=== PATIENT | male | born 1965 | race Hispanic/Latino ===

== ENCOUNTER 2022-06-28 14:10 | Inpatient (IN) | payer OTHER ==
[~2022-06-28] VITALS: Ht 165.1 cm; Wt 83.5 kg
[2022-06-28 14:38] LABS: BASOPHILS % (AUTO) 0.5 % (0.0-5.0); EOSINOPHILS % (AUTO) 1.5 % (0.0-8.0); HEMATOCRIT 35.3 % (42-54); LYMPHOCYTES % (AUTO) 21.2 % (21.0-51.0); MEAN CORPUSCULAR HEMOGLOBIN 28.2 pg (27.0-33.0); MEAN CORPUSCULAR HGB CONC 34.6 g/dL (32.0-36.0); MEAN CORPUSCULAR VOLUME 81.5 fL (79-99); MONOCYTES % (AUTO) 16.8 % (3.0-13.0); NEUTROPHILS % (AUTO) 58.8 % (40.0-77.0); PLATELET COUNT (AUTO) 393 K/uL (130-400); RED BLOOD CELL COUNT(AUTO) 4.33 MIL/uL (4.50-6.20); RED CELL DISTRIBUTION WIDTH 12.6 % (11.0-15.5)
[2022-06-28 14:47] LABS: INR 1.1 (0.85-1.15); PROTHROMBIN TIME 11.9 SEC (9.6-11.6)
[2022-06-28 14:52] LABS: ALBUMIN 2.3 g/dL (3.5-5.0); TOTAL PROTEIN, SERUM 7.3 g/dL (6.0-8.3)
[2022-06-28] MEDS ORDERED: PANTOPRAZOLE 40 MG/VIAL IVP STA (16:34)
[2022-06-28] MEDS ORDERED: IOHEXOL 350 MG/ML 100ML INFUS..BTL IV ONE (16:57)
[2022-06-28] MEDS: MORPHINE 2 MG SYG IV PRN (22:50)
[2022-06-29] MEDS: MORPHINE 2 MG SYG IV PRN (03:42)
[2022-06-29 04:00] LABS: BASOPHILS % (AUTO) 0.6 % (0.0-5.0); HEMATOCRIT 35.9 % (42-54); LYMPHOCYTES % (AUTO) 17.1 % (21.0-51.0); MEAN CORPUSCULAR HEMOGLOBIN 27.8 pg (27.0-33.0); MEAN CORPUSCULAR VOLUME 81.8 fL (79-99); MONOCYTES % (AUTO) 14.5 % (3.0-13.0); NEUTROPHILS % (AUTO) 65.1 % (40.0-77.0); PLATELET COUNT (AUTO) 435 K/uL (130-400); RED BLOOD CELL COUNT(AUTO) 4.39 MIL/uL (4.50-6.20); RED CELL DISTRIBUTION WIDTH 12.7 % (11.0-15.5); WHITE BLOOD COUNT (AUTO) 11.5 K/uL (4.8-10.8)
[2022-06-29 04:14] LABS: POTASSIUM 3.5 mmol/L (3.5-5.1)
[2022-06-29 04:19] LABS: ALBUMIN 2.2 g/dL (3.5-5.0); TOTAL PROTEIN, SERUM 7.2 g/dL (6.0-8.3)
[2022-06-29 05:14] LABS: ERYTHROCYTE SEDIMENTATION RATE 62 MM/HR (0-20)
[2022-06-29] MEDS ORDERED: ONDANSETRON 4MG INJ IV PRN (05:30)
[2022-06-29] MEDS ORDERED: MORPHINE 2 MG SYG IV PRN (05:30)
[2022-06-29] MEDS ORDERED: ACETAMINOPHEN 325 MG TAB PO PRN ×2 (05:30)
[2022-06-29] MEDS: 0.9%NACL 1000ML 1,000 ML IV SCH ×2 (05:44→16:39)
[2022-06-29] MEDS: LEVOFLOXACIN 500 MG/D5W 100 ML 100 ML IV SCH (05:44)
[2022-06-29 06:00] LABS: HEMOGLOBIN A1C 6.4 % (4.0-6.0)
[2022-06-29] MEDS: METRONIDAZOLE 500MG/100ML BAG 100 ML IVPB SCH ×3 (07:11→23:43)
[2022-06-29] MEDS ORDERED: PANTOPRAZOLE 40 MG/VIAL ONE (08:52)
[2022-06-29] MEDS ORDERED: FAMOTIDINE 20MG VIAL IV SCH (09:00)
[2022-06-29] MEDS: PANTOPRAZOLE 40MG INJ 80 MG in 0.9%NACL 100ML 100 ML IV SCH ×2 (09:01→21:34)
[2022-06-29] MEDS ORDERED: PEG 3350/NA SULF,BICARB,CL/KCL 4000 ML SOLN PO SCH (15:00)
[2022-06-29 17:30] VITALS: BP 152/91
[2022-06-29 21:16] VITALS: BP 160/90
[2022-06-29] MEDS ORDERED: METOPROLOL TARTRATE 1 MG/ML 5ML VIAL IV ONE (23:30)
[2022-06-29 23:37] VITALS: BP 169/95
[2022-06-29 23:59] VITALS: BP 152/90
[2022-06-30] VITALS (15 sets, daily range): BP systolic 129–158; BP diastolic 79–93
[2022-06-30] MEDS: 0.9%NACL 1000ML 1,000 ML IV SCH ×2 (05:25→22:10)
[2022-06-30] MEDS: LEVOFLOXACIN 500 MG/D5W 100 ML 100 ML IV SCH (05:25)
[2022-06-30 05:32] LABS: BASOPHILS % (AUTO) 0.4 % (0.0-5.0); EOSINOPHILS % (AUTO) 0.4 % (0.0-8.0); HEMATOCRIT 30.3 % (42-54); LYMPHOCYTES % (AUTO) 15.6 % (21.0-51.0); MEAN CORPUSCULAR HEMOGLOBIN 27.8 pg (27.0-33.0); MEAN CORPUSCULAR VOLUME 81.9 fL (79-99); MONOCYTES % (AUTO) 13.4 % (3.0-13.0); NEUTROPHILS % (AUTO) 68.9 % (40.0-77.0); PLATELET COUNT (AUTO) 371 K/uL (130-400); RED CELL DISTRIBUTION WIDTH 12.8 % (11.0-15.5); WHITE BLOOD COUNT (AUTO) 11.9 K/uL (4.8-10.8)
[2022-06-30 05:49] LABS: MAGNESIUM 1.7 mg/dL (1.80-2.40); POTASSIUM 3.2 mmol/L (3.5-5.1)
[2022-06-30] MEDS: METRONIDAZOLE 500MG/100ML BAG 100 ML IVPB SCH ×3 (06:59→22:13)
[2022-06-30] MEDS: PANTOPRAZOLE 40MG INJ 80 MG in 0.9%NACL 100ML 100 ML IV SCH (09:30)
[2022-06-30] MEDS ORDERED: PROPOFOL 10 MG/ML 20ML VIAL IV ONE (14:19)
[2022-06-30] MEDS ORDERED: FENTANYL CITRATE PF 50 MCG/1 ML 2ML VIAL ONE (14:19)
[2022-06-30] MEDS ORDERED: LIDOCAINE HCL 1% 20 ML VIAL ONE (14:21)
[2022-06-30] MEDS: SOLU-MEDROL 40MG VIAL IVP SCH (19:54)
[2022-06-30] MEDS: PANTOPRAZOLE 40 MG TAB DR PO SCH (22:13)
[2022-07-01] VITALS: BP 161/96
[2022-07-01] MEDS: SOLU-MEDROL 40MG VIAL IVP SCH ×3 (02:00→21:35)
[2022-07-01 04:00] VITALS: BP 125/78
[2022-07-01] MEDS: LEVOFLOXACIN 500 MG/D5W 100 ML 100 ML IV SCH (05:15)
[2022-07-01 05:35] LABS: BASOPHILS % (AUTO) 0.3 % (0.0-5.0); EOSINOPHILS % (AUTO) 0.2 % (0.0-8.0); HEMATOCRIT 31.1 % (42-54); LYMPHOCYTES % (AUTO) 12.4 % (21.0-51.0); MEAN CORPUSCULAR HEMOGLOBIN 27.8 pg (27.0-33.0); MEAN CORPUSCULAR HGB CONC 33.4 g/dL (32.0-36.0); MEAN CORPUSCULAR VOLUME 83.2 fL (79-99); NEUTROPHILS % (AUTO) 82.6 % (40.0-77.0); PLATELET COUNT (AUTO) 391 K/uL (130-400); RED BLOOD CELL COUNT(AUTO) 3.74 MIL/uL (4.50-6.20); RED CELL DISTRIBUTION WIDTH 13.1 % (11.0-15.5); WHITE BLOOD COUNT (AUTO) 6.5 K/uL (4.8-10.8)
[2022-07-01] MEDS: METRONIDAZOLE 500MG/100ML BAG 100 ML IVPB SCH ×3 (06:16→21:35)
[2022-07-01 08:15] VITALS: BP 142/74
[2022-07-01] MEDS: PANTOPRAZOLE 40 MG TAB DR PO SCH ×2 (08:44→19:59)
[2022-07-01 11:51] VITALS: BP 145/87
[2022-07-01 16:17] VITALS: BP 142/78
[2022-07-01] MEDS: 0.9%NACL 1000ML 1,000 ML IV SCH ×2 (17:30→19:59)
[2022-07-01 20:42] VITALS: BP 144/87
[2022-07-02 00:19] VITALS: BP 140/83
[2022-07-02] MEDS: SOLU-MEDROL 40MG VIAL IVP SCH ×2 (02:07→09:16)
[2022-07-02 04:00] VITALS: BP 135/80
[2022-07-02] MEDS: LEVOFLOXACIN 500 MG/D5W 100 ML 100 ML IV SCH (05:16)
[2022-07-02] MEDS: 0.9%NACL 1000ML 1,000 ML IV SCH (05:17)
[2022-07-02] MEDS: METRONIDAZOLE 500MG/100ML BAG 100 ML IVPB SCH (06:08)
[2022-07-02 08:50] VITALS: BP 139/82
[2022-07-02] MEDS: PANTOPRAZOLE 40MG INJ 80 MG in 0.9%NACL 100ML 100 ML IV SCH (09:00)
[2022-07-02] MEDS: PANTOPRAZOLE 40 MG TAB DR PO SCH (09:16)
[2022-07-02] MEDS ORDERED: KCL 20 MEQ ERTAB PO SCH (10:00)
[2022-07-02] MEDS ORDERED: MAGNESIUM 2GM PREMIX 50ML 50 ML IV SCH (10:00)
[2022-07-02 10:12] LABS: BASOPHILS % (AUTO) 0.3 % (0.0-5.0); HEMATOCRIT 33.1 % (42-54); LYMPHOCYTES % (AUTO) 7.5 % (21.0-51.0); MEAN CORPUSCULAR HEMOGLOBIN 27.8 pg (27.0-33.0); MEAN CORPUSCULAR HGB CONC 32.6 g/dL (32.0-36.0); MEAN CORPUSCULAR VOLUME 85.1 fL (79-99); MONOCYTES % (AUTO) 3.1 % (3.0-13.0); NEUTROPHILS % (AUTO) 85.5 % (40.0-77.0); PLATELET COUNT (AUTO) 350 K/uL (130-400); RED BLOOD CELL COUNT(AUTO) 3.89 MIL/uL (4.50-6.20); RED CELL DISTRIBUTION WIDTH 13.4 % (11.0-15.5); WHITE BLOOD COUNT (AUTO) 19.1 K/uL (4.8-10.8)
[2022-07-02 10:42] VITALS: BP 141/85
== END 2022-07-02 14:22 | disposition home or self-care (01) | DRG 378 ==
LOC: EDH 14:10 → EDHIP 14:11 → UNDOADMIN 20:03 → 3DH 06-29 17:20
PROVIDERS: ADMIT Hospitalist; ATTEND Hospitalist
PROC: 0DBE8ZX Excision of Large Intestine, Via Natural or Artificial Opening Endoscopic, Diagnostic (ICD-10-PCS; principal; 2022-06-30)
DX: K92.2 Gastrointestinal hemorrhage, unspecified (principal); E44.1 Mild protein-calorie malnutrition; Z20.822 Contact with and (suspected) exposure to COVID-19; K52.9 Noninfective gastroenteritis and colitis, unspecified; Z68.30 Body mass index [BMI] 30.0-30.9, adult
CPT/HCPCS: 36415; 45380; 74177; 80048; 80053; 82270; 83036; 83605; 83735; 85025; 85610; 85651; 86850; 86900; 86901; 87177; 87507; 87635; A4606; C9113; G0378; J1956; J2405; J2704; J2920; J3010; J3475; J3490; J7030; Q9967